=== PATIENT | female | born 1935 | race African-American/Black ===

== ENCOUNTER 2017-04-05 13:04 | Observation (INO) | payer MEDICARE ==
[~2017-04-05] VITALS: Ht 157.5 cm; Wt 57.0 kg
[2017-04-05 13:05] VITALS: BP 178/73; PULSE 60; RESP 16; TEMP 97.8; O2SAT 95
--- NOTE | 2017-04-05 13:40 | PD ---
HPI Chief Complaint: Cardiac Complaint Time Seen by Provider: 13:39 Travel History International Travel<30 days: No Contact w/Intl Traveler<30days: No Traveled to known affect area: No History of Present Illness HPI 81-year-old female came to the emergency room with history of palpitation this morning in the center of her chest. Patient says that palpitation started and is slowly easing off. No history of chest pain or chest discomfort. Patient did not have any syncopal episode. No history of vomiting or nausea. No history of diaphoresis. She was just concerned because her heart felt like it was racing. Patient has coronary artery disease history and has had 3 stents. The last stent was 4-5 years ago[address] She sees Dr. Puente as her associate counsel. Vital signs were stable in the ER. She does not appear to be in any distress and answering questions appropriately. REPLACED BY [facility] Past Medical History Narrative Medical List of her past medical, surgical, social and family history is reviewed from the nursing note. Cardiovascular Problems: Yes Diabetes: Yes Social History Tobacco Use: No Allergies-Medications (Allergen,Severity, Reaction): Coded Allergies: No Known Allergies (Unverified , 04/05/17) Comments No known drug allergies. Reported Meds & Prescriptions Reported Meds & Active Scripts Active Reported Lisinopril-Hctz 20-12.5 Mg Tab 1 Tab PO DAILY Narrative Medication List of her home medications reviewed from the nursing note. Review of Systems Except as stated in HPI: all other systems reviewed are Neg Cardiovascular: Positive: Palpitations Physical Exam Narrative GENERAL: Awake, alert, elderly, no obvious distress SKIN: Focused skin assessment warm/dry. HEAD: Atraumatic. Normocephalic. EYES: Pupils equal and round. No scleral icterus. No injection or drainage. ENT: No nasal bleeding or discharge. Mucous membranes pink and moist. NECK: Trachea midline. No JVD. CARDIOVASCULAR: Regular rate and rhythm. No murmur appreciated. RESPIRATORY: No accessory muscle use. Clear to auscultation. Breath sounds equal bilaterally. GASTROINTESTINAL: Abdomen soft, non-tender, nondistended. Hepatic and splenic margins not palpable. MUSCULOSKELETAL: No obvious deformities. No clubbing. No cyanosis. No edema. NEUROLOGICAL: Awake and alert. No obvious cranial nerve deficits. Motor grossly within normal limits. Normal speech. PSYCHIATRIC: Appropriate mood and affect; insight and judgment normal. Data Data Last Documented VS Vital Signs Date Time Temp Pulse Resp B/P (MAP) Pulse Ox O2 Delivery O2 Flow Rate FiO2 04/05/17 15:33 64 16 164/72 (102) 95 Room Air 04/05/17 13:05 97.8 Orders Orders Electrocardiogram (04/05/17 13:17) Basic Metabolic Panel (Bmp) (04/05/17 13:17) Ckmb (Isoenzyme) Profile (04/05/17 13:17) Complete Blood Count With Diff (04/05/17:17) Magnesium (Mg) (04/05/17 13:17) Prothrombin Time / Inr (Pt) (04/05/17 13:17) Act Partial Throm Time (Ptt) (04/05/17:17) Troponin I (04/05/17:17) Chest, Single Ap (04/05/17 13:17) Diet Heart Healthy (04/05/17 Dinner) Diet 1800 Ada Cons Carb (04/05/17 Dinner) Vital Signs (Adult) PATRIC.Q4H (04/05/17 15:48) Troponin I (04/05/17 18:00) Troponin I (04/05/17 22:00) Consult Cardiology (04/05/17 ) Blood Glucose Goal (Criteria) (04/05/17 15:48) Hypoglycemia 70 Mg/Dl Or < (04/05/17 15:48) Notify Dr: Other (04/05/17 15:48) Dextrose 50% In Radha (Vial) Inj (D50w (Vi (04/05/17 16:00) Glucagon Inj (Glucagon Inj) (04/05/17 16:00) Insulin Aspart Supplemtl Scale (Novolog (04/05/17 17:00) Thyroid Stimulating Hormone (04/05/17 15:48) ^ Other Nursing Orders (04/05/17 15:48) Scd Bilateral/Knee High PATRIC.QSHIFT (04/05/17 15:48) Amlodipine (Norvasc) (04/06/17 09:00) Gabapentin (Neurontin) (04/05/17 18:00) Metoprolol Tartrate (Lopressor) (04/05/17 21:00) (Nf) Lisinopril-Hctz (04/06/17 09:00) Lisinopril (Prinivil) (04/06/17 09:00) Hydrochlorothiazide (Hydrodiuril) (04/06/17 09:00) (Hub Use Only)Inp Phy Cons/Ref (04/05/17 ) Aspirin Chew (Aspirin Chew) (04/05/17 16:00) Urinalysis - C+S If Indicated (04/05/17 16:02) Admit Order (Ed Use Only) (04/05/17 16:06) Labs Laboratory Tests Test 04/05/17 13:55 White Blood Count 6.1 TH/MM3 Red Blood Count 4.48 MIL/MM3 Hemoglobin 13.0 GM/DL Hematocrit 38.8 % Mean Corpuscular Volume 86.5 FL Mean Corpuscular Hemoglobin 29.1 PG Mean Corpuscular Hemoglobin Concent 33.6 % Red Cell Distribution Width 13.7 % Platelet Count 212 TH/MM3 Mean Platelet Volume 8.4 FL Neutrophils (%) (Auto) 55.0 % Lymphocytes (%) (Auto) 37.0 % Monocytes (%) (Auto) 5.9 % Eosinophils (%) (Auto) 1.5 % Basophils (%) (Auto) 0.6 % Neutrophils # (Auto) 3.3 TH/MM3 Lymphocytes # (Auto) 2.3 TH/MM3 Monocytes # (Auto) 0.4 TH/MM3 Eosinophils # (Auto) 0.1 TH/MM3 Basophils # (Auto) 0.0 TH/MM3 CBC Comment DIFF FINAL Differential Comment Prothrombin Time 11.1 SEC Prothromb Time International Ratio 1.0 RATIO Activated Partial Thromboplast Time 24.0 SEC Blood Urea Nitrogen 18 MG/DL Creatinine 0.91 MG/DL Random Glucose 308 MG/DL Calcium Level 9.2 MG/DL Magnesium Level 1.9 MG/DL Sodium Level 135 MEQ/L Potassium Level 4.1 MEQ/L Chloride Level 99 MEQ/L Carbon Dioxide Level 30.2 MEQ/L Anion Gap 6 MEQ/L Estimat Glomerular Filtration Rate 59 ML/MIN Total Creatine Kinase 65 U/L Troponin I LESS THAN 0.02 NG/ML MDM Medical Decision Making Medical Screen Exam Complete: Yes Emergency Medical Condition: Yes Medical Record Reviewed: Yes Interpretation(s) Twelve-lead EKG is reviewed by me. Normal sinus rhythm, normal axis, diffuse minimal ST elevation and lateral T wave inversion, bradycardia, first-degree AV block. Heart rate of 57 bpm. Differential Diagnosis ACS, non-STEMI, paroxysmal A. fib, dysrhythmia Narrative Course 2:17 PM awaiting for the blood test result. I put a call out to Dr. Puente's office so that they can fax her last EKG. Patient has never been seen in [facility] in the past and there are no old ekgs to compare with. 2:47 PM blood test results are back. Sugar is elevated but otherwise within normal limits. Given patient's age and her previous history of coronary artery disease I would like to medically admit her. I have not received a copy of an old EKG faxed from Dr. Puente's office yet. I still have no comparison for this current EKG. 3 PM patient will be admitted to be observed in the medical service. Procedures EKG Prior to Arrival: No Diagnosis Primary Impression: Palpitations Additional Impression: Abnormal EKG Admitting Information Admitting Physician Requests: Observation Scripts Insulin Aspart Inj (Novolog Inj) 1,000 Unit/10 Ml Vial 1-9 UNITS SQ ACHS for Blood Sugar Management, #10 ML 0 Refills Max dose at bedtime:( )units; sugars less than 70,(0)units; sugars 150-199,(1) unit; sugars 200-249,(3) units; sugars 250-299,(5) units; sugars 300-349,(7) units; sugars greater than 349,(9) units Prov: Malka Garcia DO 04/06/17 Insulin Detemir Inj (Levemir Inj) 1,000 unit/ 10 ML Vial 25 UNITS SQ HS for Blood Sugar Management for 30 Days, VIAL 0 Refills Do not mix with any other Insulin. Prov: Malka Garcia DO 04/06/17 Aspirin (Aspirin Low Strength) 81 Mg Chew 81 MG CHEW DAILY for Blood Clot Prevention, #90 EA Prov: Malka Garcia DO 04/06/17 Metoprolol Tartrate (Metoprolol Tartrate) 50 Mg Tab 50 MG PO BID for Heart, #60 TAB 3 Refills Prov: Malka Garcia DO 04/06/17 Gabapentin (Gabapentin) 100 Mg Cap 100 MG PO TID for Neuropathy, #90 CAP 3 Refills Prov: Malka Garcia DO 04/06/17 Amlodipine (Amlodipine) 5 Mg Tab 5 MG PO DAILY for Blood Pressure Management for 30 Days, #30 TAB 3 Refills Prov: Malka Garcia DO 04/06/17 Rigo Zacarias MD Apr 05, 2017 13:40
[2017-04-05] MEDS ORDERED: INSU1INJ5 SQ ×2 (14:08)
[2017-04-05] MEDS ORDERED: GABA100C4 PO ×2 (14:08)
[2017-04-05] MEDS ORDERED: NITR1CAP36 PO ×2 (14:08)
[2017-04-05] MEDS ORDERED: LISI20TA PO ×2 (14:08)
[2017-04-05] MEDS ORDERED: NOVOINJ3 SQ ×2 (14:08)
[2017-04-05] MEDS ORDERED: METO50TA PO ×2 (14:08)
[2017-04-05] MEDS ORDERED: PHEN-426 PO ×2 (14:08)
[2017-04-05] MEDS ORDERED: AMLO5TAB2 PO ×2 (14:08)
[2017-04-05 14:14] LABS: AUTOMATED NEUTROPHIL # 3.3 TH/MM3 (1.8-7.7); BASOPHIL % 0.6 % (0.0-2.0); EOSINOPHIL # 0.1 TH/MM3 (0-0.4); EOSINOPHIL % 1.5 % (0.0-4.0); HEMATOCRIT 38.8 % (35.0-46.0); LYMPHOCYTE # 2.3 TH/MM3 (1.0-4.8); MEAN CELL VOLUME 86.5 FL (80.0-100.0); MEAN CORPUSCULAR HEMOGLOBIN 29.1 PG (27.0-34.0); MEAN CORPUSCULAR HGB CONC 33.6 % (32.0-36.0); MEAN PLATELET VOLUME 8.4 FL (7.0-11.0); MONO % 5.9 % (0.0-8.0); MONOCYTE # 0.4 TH/MM3 (0-0.9); PLATELET COUNT 212 TH/MM3 (150-450); RED BLOOD COUNT 4.48 MIL/MM3 (4.00-5.30); RED CELL DISTRIBUTION WIDTH 13.7 % (11.6-17.2); WHITE BLOOD COUNT 6.1 TH/MM3 (4.0-11.0)
[2017-04-05 14:31] LABS: BICARBONATE 30.2 MEQ/L (21.0-32.0); BLOOD UREA NITROGEN 18 MG/DL (7-18); CALCIUM 9.2 MG/DL (8.5-10.1); CHLORIDE 99 MEQ/L (98-107); CREATININE 0.91 MG/DL (0.50-1.00); GLOMERULAR FILTRATION RATE 59 ML/MIN (>89); GLUCOSE,RANDOM 308 MG/DL (74-106); MAGNESIUM 1.9 MG/DL (1.5-2.5); SODIUM (NA) 135 MEQ/L (136-145)
[2017-04-05 14:33] LABS: PROTHROMBIN TIME - PATIENT 11.1 SEC (9.8-11.6)
[2017-04-05 14:34] LABS: TROPONIN I LESS THAN 0.02 NG/ML (0.02-0.05)
--- NOTE | 2017-04-05 14:34 | RADRPT ---
EXAM DATE/TIME: 04/05/2017 14:02 [place] COMPARISON: No previous studies available for comparison. INDICATIONS : Chest palpitations. MEDICAL HISTORY : Hypertension. Myocardial infarction. SURGICAL HISTORY : Cardiac cath. Coronary stent. ENCOUNTER: Initial ACUITY: 1 day PAIN SCORE: 0/10 LOCATION: Bilateral chest FINDINGS: A single view of the chest demonstrates the lungs to be symmetrically aerated without evidence of mas s, infiltrate or effusion. Nodular density right upper lobe. The cardiomediastinal contours are unre markable. Old right-sided rib fractures. CONCLUSION: 1. Nodular density right upper lobe. 2. Old right-sided rib fractures. Artemio López MD on April 05, 2017 at 14:31 Board Certified Radiologist. This report was verified electronically.
[2017-04-05 15:33] VITALS: BP 164/72; PULSE 64; RESP 16; O2SAT 95
[2017-04-05] MEDS ORDERED: GLUCAGON 1 MG/ML VIAL OTHER PRN ×2 (16:00)
[2017-04-05] MEDS ORDERED: DEXTROSE 50% IN WATER 50 ML VIAL(D50) IV PUSH PRN (16:00)
--- NOTE | 2017-04-05 16:02 | HHI.HP ---
[facility] Service [place] [facility] Primary Care Physician Geovanni Bateman MD Admission Diagnosis palpitations Diagnoses: (1) Palpitations Diagnosis: Principal (2) Abnormal EKG Diagnosis: Principal Chief Complaint: palpitations Travel History International Travel<30 Days: No Contact w/Intl Traveler <30 Da: No Traveled to Known Affected Are: No History of Present Illness patient is a 81 y/o female with history of CAD and stent placement, hypertension and diabetes who presented to ER with palpitations. she says that she's had on and off palpitations for quite a while. she denies any chest pain, sob, nausea or dizziness. she doesn't recall any aggrevating factors. she's being followed up by . Review of Systems Constitutional: DENIES: Fever, Weight loss, Chills, Night Sweats Eyes: DENIES: Blurred vision, Diplopia, Vision loss, Double Vision Ears, nose, mouth, throat: DENIES: Tinnitus, Vertigo, Throat pain, Epistaxis Respiratory: DENIES: Apneas, Cough, Snoring, Wheezing, Hemoptysis, Sputum production, Shortness of breath Cardiovascular: COMPLAINS OF: Palpitations, DENIES: Chest pain, Syncope, Dyspnea on Exertion, PND, Lower Extremity Edema, Orthopnea, Claudication Gastrointestinal: DENIES: Abdominal pain, Black stools, Bloody stools, Constipation, Diarrhea, Nausea, Vomiting, Difficulty Swallowing, Anorexia Genitourinary: DENIES: Urinary frequency, Urgency, Hematuria, Dysuria Musculoskeletal: DENIES: Joint pain, Muscle aches, Stiffness, Joint Swelling Integumentary: DENIES: Rash Neurologic: DENIES: Abnormal gait, Headache, Localized weakness, Paresthesias, Seizures, Speech Problems, Tremor, Poor Balance Psychiatric: DENIES: Anxiety, Confusion, Mood changes, Depression, Hallucinations, Agitation, Suicidal Ideation, Homicidal Ideation, Delusions Past Family Social History Past Medical History CAD hypertension diabetes mellitus Past Surgical History cardiac stent placement. Reported Medications Levemir Flextouch Pen Inj (Insulin Detemir) 300 unit/3 ML Pen Unknown Dose SQ HS Novolog Flexpen Inj (Insulin Aspart) 300 Unit/3 Ml Pen 1 Units SQ ACHS Metoprolol Tartrate 50 Mg Tab 50 Mg PO BID Gabapentin 100 Mg Cap 100 Mg PO TID Nitrofurantoin Macrocrystal 100 Mg Cap 100 Mg PO BID Lisinopril-Hctz 20-12.5 Mg Tab 1 Tab PO DAILY Phenazopyridine (Phenazopyridine HCl) 100 Mg Tab 100 Mg PO Q8H PRN Amlodipine (Amlodipine Besylate) 5 Mg Tab 5 Mg PO DAILY Allergies: Coded Allergies: No Known Allergies (Unverified , 04/05/17) Social History no smoking or drinking. Physical Exam Vital Signs Vital Signs Date Time Temp Pulse Resp B/P (MAP) Pulse Ox O2 Delivery O2 Flow Rate FiO2 04/05/17 15:33 64 16 164/72 (102) 95 Room Air 04/05/17 13:05 97.8 60 16 178/73 (108) 95 Room Air Physical Exam GENERAL: This is a well-nourished, well-developed patient, in no apparent distress. SKIN: No rashes, ecchymoses or lesions. Cool and dry. HEAD: Atraumatic. Normocephalic. No temporal or scalp tenderness. EYES: Pupils equal round and reactive. Extraocular motions intact. No scleral icterus. No injection or drainage. ENT: Nose without bleeding, purulent drainage or septal hematoma. Throat without erythema, tonsillar hypertrophy or exudate. Uvula midline. Airway patent. NECK: Trachea midline. No JVD or lymphadenopathy. Supple, nontender, no meningeal signs. CARDIOVASCULAR: Regular rate and rhythm without murmurs, gallops, or rubs. RESPIRATORY: Clear to auscultation. Breath sounds equal bilaterally. No wheezes , rales, or rhonchi. GASTROINTESTINAL: Abdomen soft, non-tender, nondistended. No hepato-splenomegaly , or palpable masses. No guarding. MUSCULOSKELETAL: Extremities without clubbing, cyanosis, or edema. No joint tenderness, effusion, or edema noted. No calf tenderness. Negative Homans sign bilaterally. NEUROLOGICAL: Awake and alert. Cranial nerves II through XII intact. Motor and sensory grossly within normal limits. Five out of 5 muscle strength in all muscle groups. Normal speech. Laboratory Laboratory Tests Test 04/05/17 13:55 White Blood Count 6.1 Red Blood Count 4.48 Hemoglobin 13.0 Hematocrit 38.8 Mean Corpuscular Volume 86.5 Mean Corpuscular Hemoglobin 29.1 Mean Corpuscular Hemoglobin Concent 33.6 Red Cell Distribution Width 13.7 Platelet Count 212 Mean Platelet Volume 8.4 Neutrophils (%) (Auto) 55.0 Lymphocytes (%) (Auto) 37.0 Monocytes (%) (Auto) 5.9 Eosinophils (%) (Auto) 1.5 Basophils (%) (Auto) 0.6 Neutrophils # (Auto) 3.3 Lymphocytes # (Auto) 2.3 Monocytes # (Auto) 0.4 Eosinophils # (Auto) 0.1 Basophils # (Auto) 0.0 CBC Comment DIFF FINAL Differential Comment Prothrombin Time 11.1 Prothromb Time International Ratio 1.0 Activated Partial Thromboplast Time 24.0 Blood Urea Nitrogen 18 Creatinine 0.91 Random Glucose 308 Calcium Level 9.2 Magnesium Level 1.9 Sodium Level 135 Potassium Level 4.1 Chloride Level 99 Carbon Dioxide Level 30.2 Anion Gap 6 Estimat Glomerular Filtration Rate 59 Total Creatine Kinase 65 Troponin I LESS THAN 0.02 Result Diagram: 04/05/17 1355 04/05/17 1355 Imaging EKG; sinus rhythm with T wave inversions in lateral leads Caprini VTE Risk Assessment Caprini VTE Risk Assessment: Mod/High Risk (score >= 2) Caprini Risk Assessment Model Point Value = 1 Point Value = 2 Point Value = 3 Point Value = 5 Age 41-60 Minor surgery BMI > 25 kg/m2 Swollen legs Varicose veins or History of unexplained or recurrent spontaneous Oral contraceptives or hormone replacement Sepsis (< 1 month) Serious lung disease, including pneumonia (< 1 month) Abnormal pulmonary function Acute myocardial infarction Congestive heart failure (< 1 month) History of inflammatory bowel disease Medical patient at bed rest Age 61-74 Arthroscopic surgery Major open surgery (> 45 min) Laparoscopic surgery (> 45 min) Malignancy Confined to bed (> 72 hours) Immobilizing plaster cast Central venous access Age >= 75 History of VTE Family history of VTE Factor V Leiden Prothrombin [id number] Lupus anticoagulant Anticardiolipin antibodies Elevated serum homocysteine Heparin-induced thrombocytopenia Other congenital or acquired thrombophilia Stroke (< 1 month) Elective arthroplasty Hip, pelvis, or leg fracture Acute spinal cord injury (< 1 month) Prophylaxis Regimen Total Risk Factor Score Risk Level Prophylaxis Regimen 0-1 Low Early ambulation 2 Moderate Order ONE of the following: *Sequential Compression Device (SCD) *Heparin 5000 units SQ BID 3-4 Higher Order ONE of the following medications: *Heparin 5000 units SQ TID *Enoxaparin/Lovenox 40 mg SQ daily (WT < 150 kg, CrCl > 30 mL/min) *Enoxaparin/Lovenox 30 mg SQ daily (WT < 150 kg, CrCl > 10-29 mL/min) *Enoxaparin/Lovenox 30 mg SQ BID (WT < 150 kg, CrCl > 30 mL/min) AND/OR *Sequential Compression Device (SCD) 5 or more Highest Order ONE of the following medications: *Heparin 5000 units SQ TID (Preferred with Epidurals) *Enoxaparin/Lovenox 40 mg SQ daily (WT < 150 kg, CrCl > 30 mL/min) *Enoxaparin/Lovenox 30 mg SQ daily (WT < 150 kg, CrCl > 10-29 mL/min) *Enoxaparin/Lovenox 30 mg SQ BID (WT < 150 kg, CrCl > 30 mL/min) AND *Sequential Compression Device (SCD) Assessment and Plan Assessment and Plan A/P - palpitations with abnormal EKG with history of CAD and stent placement start on aspirin- continue metoprolol- trend the cardiac enzymes and consult cardiology ( ). check TSH. -hypertension; resume home meds- will monitor and adjust the regimen as needed. -diabetes mellitus; will verify the home insulin dosage- accu-check with SSI -DVT prophylaxis with SCD's Discussed Condition With ER physician and the patient. Pooja Mccoy MD Apr 05, 2017 16:02
[2017-04-05 16:33] VITALS: BP 144/89; PULSE 56; RESP 16; O2SAT 96
[2017-04-05] MEDS: ASPIRIN 81 MG CHEW TAB CHEW SCH ×2 (16:35)
[2017-04-05 17:12] VITALS: BP 163/71; PULSE 66; RESP 20; TEMP 97.7; O2SAT 97
[2017-04-05 17:27] LABS: BACTERIA, URINE RARE /hpf; BILIRUBIN, URINE NEG (NEG); BLOOD, URINE NEG (NEG); GLUCOSE,URINE 1000 mg/dL (NEG); KETONE, URINE NEG (NEG); NITRITE,URINE NEG (NEG); SQUAMOUS EPITHELIAL CELL URINE <1 /hpf (0-5); URINE LEUKOCYTE ESTERASE TRACE (NEG)
[2017-04-05 17:28] LABS: URINE COLOR BROWN (YELLW/STRAW)
[2017-04-05] MEDS: GABAPENTIN 100 MG CAP PO SCH ×2 (18:02)
[2017-04-05] MEDS: INSULIN ASPART SUPPLEMENTAL SCALE SQ SCH ×4 (18:47→21:00)
[2017-04-05 20:03] VITALS: BP 120/60; PULSE 63; RESP 16; TEMP 98; O2SAT 95
[2017-04-05] MEDS ORDERED: METOPROLOL TARTRATE 50 MG TAB PO SCH ×2 (21:00)
[2017-04-05 23:40] LABS: TROPONIN I LESS THAN 0.02 NG/ML (0.02-0.05)
[2017-04-05 23:57] VITALS: BP 119/54; PULSE 57; RESP 18; TEMP 97.3; O2SAT 92
[2017-04-06 04:52] VITALS: BP 128/71; PULSE 55; RESP 20; TEMP 96.3; O2SAT 93
[2017-04-06 07:15] VITALS: PULSE 59
[2017-04-06 07:57] VITALS: BP 126/65; PULSE 58; RESP 20; TEMP 96.2; O2SAT 92
--- NOTE | 2017-04-06 08:50 | PD.CONS ---
HPI Service cardiology Consult Requested By hospital Reason for Consult palpitation Primary Care Physician Geovanni Bateman MD History of Present Illness admitted with palpitations no chest pains no sob active at home seen in office had ecg as here few month ago and she refusing heart cath no syncope no edema no claudications had palpitations few days on and off has Past Family Social History Allergies: Coded Allergies: No Known Allergies (Unverified , 04/05/17) Past Medical History cad stent rca 2011 htn diabetes Past Surgical History non contributing Reported Medications Reported Meds & Active Scripts Active Reported Levemir Flextouch Pen Inj (Insulin Detemir) 300 unit/3 ML Pen Unknown Dose SQ HS Novolog Flexpen Inj (Insulin Aspart) 300 Unit/3 Ml Pen 1 Units SQ ACHS Metoprolol Tartrate 50 Mg Tab 50 Mg PO BID Gabapentin 100 Mg Cap 100 Mg PO TID Nitrofurantoin Macrocrystal 100 Mg Cap 100 Mg PO BID Lisinopril-Hctz 20-12.5 Mg Tab 1 Tab PO DAILY Phenazopyridine (Phenazopyridine HCl) 100 Mg Tab 100 Mg PO Q8H PRN Amlodipine (Amlodipine Besylate) 5 Mg Tab 5 Mg PO DAILY Active Ordered Medications Current Medications Medications (Trade) Dose Ordered Sig/Luci Route Start Time Stop Time Status Last Admin (D50w (Vial) Inj) 50 ml UNSCH PRN IV PUSH 04/05/17 16:00 (Glucagon Inj) 1 mg UNSCH PRN OTHER 04/05/17 16:00 (NovoLOG SUPPLEMENTAL SCALE) 1 ACHS SLIDING SCALE SQ 04/05/17 17:00 04/05/17 21:00 (Norvasc) 5 mg DAILY PO 04/06/17 09:00 (Neurontin) 100 mg TID PO 04/05/17 18:00 04/05/17 18:02 (Lopressor) 50 mg BID PO 04/05/17 21:00 04/05/17 22:29 (Prinivil) 20 mg DAILY PO 04/06/17 09:00 (Hydrodiuril) 12.5 mg DAILY PO 04/06/17 09:00 (Aspirin Chew) 81 mg DAILY CHEW 04/05/17 16:00 04/05/17 16:35 Family History non contributing Social History no alcohol no drugs no tobacco Physical Exam Vital Signs Vital Signs Date Time Temp Pulse Resp B/P (MAP) Pulse Ox O2 Delivery O2 Flow Rate FiO2 04/06/17 07:57 96.2 58 20 126/65 (85) 92 04/06/17 04:52 96.3 55 20 128/71 (90) 93 04/05/17 23:57 97.3 57 18 119/54 (75) 92 04/05/17 20:03 98.0 63 16 120/60 (80) 95 04/05/17 17:12 97.7 66 20 163/71 (101) 97 04/05/17 16:33 56 16 144/89 (107) 96 Room Air 04/05/17 15:33 64 16 164/72 (102) 95 Room Air 04/05/17 13:05 97.8 60 16 178/73 (108) 95 Room Air Physical Exam enzymes negative feeling well no arrhythmia detected while in hospital ambulate and if doing well ok for home and follow up as outpatient already on b yanna and heart rate low 60s no need to change dose for now Laboratory Laboratory Tests Test 04/05/17 13:55 04/05/17 17:00 04/05/17 18:20 04/05/17 22:30 White Blood Count 6.1 Red Blood Count 4.48 Hemoglobin 13.0 Hematocrit 38.8 Mean Corpuscular Volume 86.5 Mean Corpuscular Hemoglobin 29.1 Mean Corpuscular Hemoglobin Concent 33.6 Red Cell Distribution Width 13.7 Platelet Count 212 Mean Platelet Volume 8.4 Neutrophils (%) (Auto) 55.0 Lymphocytes (%) (Auto) 37.0 Monocytes (%) (Auto) 5.9 Eosinophils (%) (Auto) 1.5 Basophils (%) (Auto) 0.6 Neutrophils # (Auto) 3.3 Lymphocytes # (Auto) 2.3 Monocytes # (Auto) 0.4 Eosinophils # (Auto) 0.1 Basophils # (Auto) 0.0 CBC Comment DIFF FINAL Differential Comment Prothrombin Time 11.1 Prothromb Time International Ratio 1.0 Activated Partial Thromboplast Time 24.0 Blood Urea Nitrogen 18 Creatinine 0.91 Random Glucose 308 Calcium Level 9.2 Magnesium Level 1.9 Sodium Level 135 Potassium Level 4.1 Chloride Level 99 Carbon Dioxide Level 30.2 Anion Gap 6 Estimat Glomerular Filtration Rate 59 Total Creatine Kinase 65 Troponin I LESS THAN 0.02 LESS THAN 0.02 LESS THAN 0.02 Urine Color BROWN Urine Turbidity CLEAR Urine pH 5.0 Urine Specific [place] 1.006 Urine Protein NEG Urine Glucose (UA) 1000 Urine Ketones NEG Urine Occult Blood NEG Urine Nitrite NEG Urine Bilirubin NEG Urine Urobilinogen LESS THAN 2.0 Urine Leukocyte Esterase TRACE Urine RBC LESS THAN 1 Urine WBC 2 Urine Squamous Epithelial Cells <1 Urine Bacteria RARE Microscopic Urinalysis Comment CULT NOT INDICATED Thyroid Stimulating Hormone 3rd Gen 2.570 Result Diagram: 04/05/17 1355 04/05/17 1355 Valeria Puente MD Apr 06, 2017 08:50
[2017-04-06] MEDS: INSULIN ASPART SUPPLEMENTAL SCALE SQ SCH ×2 (08:56)
[2017-04-06] MEDS: ASPIRIN 81 MG CHEW TAB CHEW SCH ×2 (08:58)
[2017-04-06] MEDS: GABAPENTIN 100 MG CAP PO SCH ×2 (08:59)
[2017-04-06] MEDS ORDERED: NON-FORMULARY DRUG (Lisinopril-Hctz 1 TAB) PO SCH ×2 (09:00)
[2017-04-06] MEDS ORDERED: amLODIPine BESYLATE 5 MG TAB PO SCH ×2 (09:00)
[2017-04-06] MEDS ORDERED: LISINOPRIL 20 MG TAB PO SCH ×2 (09:00)
[2017-04-06] MEDS ORDERED: HYDROCHLOROTHIAZIDE 25 MG TAB PO SCH ×2 (09:00)
[2017-04-06] MEDS ORDERED: AMLO5TAB2 PO ×2 (10:14)
[2017-04-06] MEDS ORDERED: METO50TA PO ×2 (10:14)
[2017-04-06] MEDS ORDERED: GABA100C4 PO ×2 (10:14)
[2017-04-06] MEDS ORDERED: LEVEMIR SQ ×2 (10:14)
[2017-04-06] MEDS ORDERED: NOVOLOGP2 SQ ×2 (10:14)
[2017-04-06] MEDS ORDERED: ASPI81CH25 CHEW ×2 (10:14)
--- NOTE | 2017-04-06 10:15 | HHI.PR ---
Subjective Remarks Follow up for heart palpitations. Patient is doing well. No acute concerns. We walked patient in the hallway. Her resting heart rate in the 60s and on ambulation, her heart rate increased to 80s. No CP, SOB, fever, chills. Objective Vitals Vital Signs Date Time Temp Pulse Resp B/P (MAP) Pulse Ox O2 Delivery O2 Flow Rate FiO2 04/06/17 07:57 96.2 58 20 126/65 (85) 92 04/06/17 04:52 96.3 55 20 128/71 (90) 93 04/05/17 23:57 97.3 57 18 119/54 (75) 92 04/05/17 20:03 98.0 63 16 120/60 (80) 95 04/05/17 17:12 97.7 66 20 163/71 (101) 97 04/05/17 16:33 56 16 144/89 (107) 96 Room Air 04/05/17 15:33 64 16 164/72 (102) 95 Room Air 04/05/17 13:05 97.8 60 16 178/73 (108) 95 Room Air I/O 04/05/17 04/05/17 04/05/17 04/06/17 04/06/17 04/06/17 07:00 15:00 23:00 07:00 15:00 23:00 Intake Total 740 ml 240 ml Output Total 300 ml 1000 ml Balance 440 ml -760 ml Intake Oral 740 ml 240 ml Output Urine Total 300 ml 1000 ml # Voids 1 1 Result Diagram: 04/05/17 1355 04/05/17 1355 Imaging Last Impressions Chest X-Ray 04/05/17 1317 Signed Impressions: Service Date/Time: Wednesday, April 05, 2017 14:02 - CONCLUSION: 1. Nodular density right upper lobe. 2. Old right-sided rib fractures. Artemio López MD Objective Remarks GENERAL: Alert, NAD. SKIN: Warm and dry. HEAD: Normocephalic. EYES: No scleral icterus. No injection or drainage. NECK: Supple, trachea midline. No JVD or lymphadenopathy. CARDIOVASCULAR: Regular rate and rhythm without murmurs, gallops, or rubs. RESPIRATORY: Breath sounds equal bilaterally. No accessory muscle use. GASTROINTESTINAL: Abdomen soft, non-tender, nondistended. MUSCULOSKELETAL: No cyanosis, or edema. BACK: Nontender without obvious deformity. No CVA tenderness. A/P Problem List: (1) Palpitations ICD Code: R00.2 - Palpitations Status: Acute (2) Abnormal EKG ICD Code: R94.31 - Abnormal electrocardiogram [ECG] [EKG] Status: Acute Assessment and Plan - Palpitations - No chest pain. Patient was evaluated by her Engineering Technician Parking Dr. Puente. - Per Dr. Puente, patient has refused cath in the past. - Cardiology recommended to keep Metoprolol 50mg BID dosing. - We ambulated patient. Heart rate increased from 60s to 80s. Patient was asymptomatic. - Will discharge patient home. - Hypertension - Diabetes - Resume home medications on discharge. Full code. Discharge patient to home Condition on discharge: Improved Diabetic Diet as tolerated Ad Sara activity Rx written: Aspirin 81mg Qday Levemir 25 units QHS (renewed) Sliding scale insulin with Aspart (renewed) Follow-up with primary care physician within one week and Cardiology within one week. Malka Garcia DO Apr 06, 2017 10:14
--- NOTE | 2017-04-06 13:36 | EKG ---
Date Performed: 04/05/2017 Time Performed: 14:06:52 PTAGE: 81 years EKG: SINUS BRADYCARDIA WITH FIRST DEGREE AV BLOCK WITH OCCASIONAL SUPRAVENTRICULAR PREMATURE COM PLEXES ST DEVIATION AND MODERATE T-WAVE ABNORMALITY, CONSIDER LATERAL ISCHEMIA INFERIOR AND LATERAL S T ELEVATION WITH T WAVE INVERSION CANNOT RULE OUT ACUTE INJURY Clinical correlation is strongly recom mended ABNORMAL ECG NO PREVIOUS TRACING DOCTOR: Dirk Bcekham Interpretating Date/Time 04/06/2017 13:34:23
--- NOTE | 2017-04-06 13:36 | EKG ---
Date Performed: 04/05/2017 Time Performed: 22:32:08 PTAGE: 81 years EKG: SINUS BRADYCARDIA WITH FIRST DEGREE AV BLOCK MARKED T-WAVE ABNORMALITY, CONSIDER ANTEROLATE RAL ISCHEMIA ABNORMAL ECG Compared to prior tracing no significant change PREVIOUS TRACING : 04/05/2017 18.06 DOCTOR: Dirk Beckham Interpretating Date/Time 04/06/2017 13:32:38
--- NOTE | 2017-04-06 13:37 | EKG ---
Date Performed: 04/05/2017 Time Performed: 18:06:20 PTAGE: 81 years EKG: Sinus rhythm WITH FIRST DEGREE AV BLOCK ST DEVIATION AND MODERATE T-WAVE ABNORMALITY, CONSIDER LATERAL ISCHEMIA P ersistent ST-T wave changes suggesting ischemia Clinical correlation is recommended ABNORMAL ECG PREVIOUS TRACING : 04/05/2017 14.06 DOCTOR: Dirk Beckham Interpretating Date/Time 04/06/2017 13:34:43
== END 2017-04-06 13:47 | disposition home or self-care (01) ==
LOC: NEPE 13:04 → NEDA 16:08 → NEPGCP 16:51
PROVIDERS: ADMIT Hospitalist; ATTEND Hospitalist
DX: R00.2 Palpitations (principal); I48.0 Paroxysmal atrial fibrillation; R94.31 Abnormal electrocardiogram [ECG] [EKG]; I25.10 Atherosclerotic heart disease of native coronary artery without angina pectoris; I10 Essential (primary) hypertension; E11.9 Type 2 diabetes mellitus without complications; G62.9 Polyneuropathy, unspecified; Z95.5 Presence of coronary angioplasty implant and graft; Z79.84 Long term (current) use of oral hypoglycemic drugs
CPT/HCPCS: 71010; 80048; 81001; 82550; 82948; 83735; 84443; 84484; 85025; 85610; 85730; 93005; 96372; 99285; G0378; J1815